=== PATIENT | female | born 1960 | race African-American/Black ===

== ENCOUNTER 2017-09-24 09:49 | Emergency (ER) | payer OTHER ==
[~2017-09-24] VITALS: Ht 162.6 cm; Wt 100.5 kg
[2017-09-24] MEDS ORDERED: DOCU-275 PO (09:55)
[2017-09-24] MEDS ORDERED: GABA-529 PO (09:55)
[2017-09-24] MEDS ORDERED: SOTA80 PO (09:55)
[2017-09-24] MEDS ORDERED: ASPI81 PO (09:55)
[2017-09-24] MEDS ORDERED: ENAL20 PO (09:55)
[2017-09-24] MEDS ORDERED: DIPH25 PO (09:55)
[2017-09-24] MEDS ORDERED: FURO20 PO (09:55)
[2017-09-24] MEDS ORDERED: DiphenhydrAMINE HCL 50 MG/ML VIAL IM ONE (11:30)
[2017-09-24] MEDS ORDERED: TRIAMCINOLONE ACETONIDE 40 MG/ML VIAL IM ONE (11:30)
[2017-09-24] MEDS ORDERED: GABA-531 PO (11:30)
[2017-09-24 12:26] VITALS: BP 118/91
== END 2017-09-24 12:29 | disposition home or self-care (01) ==
LOC: EMS 09:52
DX: L30.9 Dermatitis, unspecified (principal); I10 Essential (primary) hypertension; M19.90 Unspecified osteoarthritis, unspecified site; Z88.0 Allergy status to penicillin; Z88.2 Allergy status to sulfonamides; Z88.1 Allergy status to other antibiotic agents; Z91.040 Latex allergy status
CPT/HCPCS: 96372; 99284; J1200; J3301

== ENCOUNTER 2018-04-05 01:32 | Inpatient (IN) | payer OTHER ==
[~2018-04-05] VITALS: Ht 167.6 cm; Wt 103.5 kg
[~2018-04-05 01:32] MED LIST: ASPI81 PO; DIPH25 PO; DOCU-275 PO; ENAL20 PO; FURO20 PO; GABA-531 PO; SOTA80 PO
[2018-04-05] MEDS ORDERED: KETOROLAC TROMETHAMINE 30 MG/ML VIAL IVP ONE (02:15)
[2018-04-05] MEDS ORDERED: CYCLOBENZAPRINE HCL 10 MG TABLET PO ONE (02:15)
[2018-04-05 02:27] LABS: BASOPHILS % (AUTO) 0.6 % (0.0-2.0); HEMATOCRIT 36.2 % (36-46); HEMOGLOBIN 12.1 g/dL (12.0-16.0); LYMPHOCYTES # (AUTO) 1.6 K/uL (1.0-4.8); LYMPHOCYTES % (AUTO) 18.6 % (22.0-44.0); MEAN CORPUSCULAR HEMOGLOBIN 29.7 pg (26.0-34.0); MEAN CORPUSCULAR HGB CONC 33.3 G/dL (31.0-37.0); MEAN CORPUSCULAR VOLUME 89 fL (80-100); MONOCYTES # (AUTO) 1.1 K/uL (0.1-1.0); MONOCYTES % (AUTO) 12.3 % (2.0-9.0); NEUTROPHILS # (AUTO) 5.5 K/uL (1.8-7.7); NEUTROPHILS % (AUTO) 63.5 % (40.0-70.0); PLATELET COUNT (AUTO) 209 K/uL (150-450); RED BLOOD CELL COUNT(AUTO) 4.06 MIL/uL (4.00-5.20); RED CELL DISTRIBUTION WIDTH 14.7 % (11.5-14.5)
[2018-04-05 02:36] LABS: ANION GAP 6 mmol/L (8-16); CALCIUM, TOTAL 8.7 mg/dL (8.8-10.5); CARBON DIOXIDE 29 mmol/L (22-29); CHLORIDE 107 mmol/L (98-107); CREATININE 0.83 mg/dL (0.60-1.30); GLOMERULAR FILTR. RATE CALC > 60 mL/min (>60); GLUCOSE,RANDOM 101 mg/dL (70-110); POTASSIUM 3.3 mmol/L (3.5-5.1); SODIUM SERUM 142 mmol/L (136-145); UREA NITROGEN, BLOOD 10 mg/dL (7-18)
[2018-04-05 02:38] LABS: PROTHROMBIN TIME 10.6 SEC (9.4-11.6)
[2018-04-05 02:47] LABS: B-TYPE NATRIURETIC PEPTIDE 17 pg/mL (0-100)
[2018-04-05] MEDS ORDERED: CefTRIAXone SODIUM 1 GM in DEXTROSE 5%-WATER 10 ML IV ONE (03:00)
[2018-04-05] MEDS ORDERED: AZITHROMYCIN 500 MG/NS 250 ML IV ONE (03:00)
[2018-04-05 03:09] LABS: ALANINE AMINOTRANSFERASE 29 U/L (12-78); ALBUMIN 3.3 g/dL (3.4-5.0); ALKALINE PHOSPHATASE 66 U/L (46-116); ASPARTATE AMINOTRANSFERASE 24 U/L (15-37); BILIRUBIN,TOTAL 0.6 mg/dL (0.1-1.0); CREATINE KINASE MB 0.6 ng/mL (0-5); CREATINE KINASE, TOTAL 191 U/L (26-192); TOTAL PROTEIN, SERUM 7.2 g/dL (6.4-8.2)
[2018-04-05] MEDS ORDERED: ACETAMINOPHEN 325 MG TABLET PO PRN ×2 (03:15→07:30)
[2018-04-05] MEDS ORDERED: 0.9% SODIUM CHLORIDE 10 ML SYRINGE IVP PRN ×2 (03:15→07:30)
[2018-04-05] MEDS ORDERED: POTASSIUM CHLORIDE 20 MEQ ER TABLET PO ONE (04:15)
[2018-04-05 04:56] VITALS: BP 95/58
[2018-04-05 05:15] VITALS: BP 98/54
[2018-04-05] MEDS ORDERED: PNEUMOCOCCAL VACCINE POLYVALENT 0.5 ML VIAL [PPSV23] IM ONE (06:30)
[2018-04-05] MEDS ORDERED: DOCUSATE SODIUM 100 MG CAPSULE PO PRN (07:30)
[2018-04-05] MEDS ORDERED: ALBUTEROL SULFATE 2.5 MG/0.5 ML NEB SOLUTION NEB SCH (07:30)
[2018-04-05] MEDS ORDERED: ZOLPIDEM TARTRATE 5 MG TABLET PO PRN (07:30)
[2018-04-05] MEDS ORDERED: IPRATROPIUM BROMIDE 0.5 MG/2.5 ML NEB SOLUTION NEB PRN (07:30)
[2018-04-05] MEDS ORDERED: ONDANSETRON HCL 4 MG/2 ML VIAL IVP PRN (07:30)
[2018-04-05] MEDS ORDERED: ALBUTEROL SULFATE 2.5 MG/0.5 ML NEB SOLUTION NEB PRN (07:30)
[2018-04-05] MEDS ORDERED: IPRATROPIUM BROMIDE 0.5 MG/2.5 ML NEB SOLUTION NEB SCH (07:30)
[2018-04-05 07:43] VITALS: BP 102/62
[2018-04-05] MEDS ORDERED: HEPARIN SODIUM,PORCINE 5,000 UNITS/ML VIAL SQ SCH (08:00)
[2018-04-05] MEDS: ALBUTEROL SULFATE 2.5 MG/0.5 ML NEB SOLUTION NEB SCH ×3 (08:00→21:23)
[2018-04-05] MEDS: IPRATROPIUM BROMIDE 0.5 MG/2.5 ML NEB SOLUTION NEB SCH ×3 (08:00→21:23)
[2018-04-05] MEDS ORDERED: IOVERSOL 320 MG/ML 100 ML VIAL ONE (08:00)
[2018-04-05] MEDS: ENALAPRIL MALEATE 20 MG TABLET PO SCH (09:00)
[2018-04-05] MEDS: DiphenhydrAMINE HCL 25 MG CAPSULE PO PRN ×2 (09:10→19:47)
[2018-04-05] MEDS: GABAPENTIN 300 MG CAPSULE PO SCH ×3 (09:10→19:47)
[2018-04-05] MEDS: ASPIRIN 81 MG CHEWABLE TABLET PO SCH (09:10)
[2018-04-05] MEDS: PANTOPRAZOLE SODIUM 40 MG/VIAL IVP SCH (09:10)
[2018-04-05] MEDS ORDERED: HEPARIN SODIUM,PORCINE 5,000 UNITS/ML VIAL IVP PRN ×2 (10:45)
[2018-04-05] MEDS ORDERED: HEPARIN SODIUM,PORCINE 5,000 UNITS/ML VIAL IVP ONE (11:00)
[2018-04-05 11:22] LABS: BASOPHILS % (AUTO) 0.6 % (0.0-2.0); EOSINOPHILS % (AUTO) 4.7 % (1.0-6.0); HEMATOCRIT 33.7 % (36-46); LYMPHOCYTES # (AUTO) 1.8 K/uL (1.0-4.8); LYMPHOCYTES % (AUTO) 23.4 % (22.0-44.0); MEAN CORPUSCULAR HEMOGLOBIN 29.6 pg (26.0-34.0); MEAN CORPUSCULAR HGB CONC 32.8 G/dL (31.0-37.0); MEAN CORPUSCULAR VOLUME 90 fL (80-100); MONOCYTES # (AUTO) 0.7 K/uL (0.1-1.0); MONOCYTES % (AUTO) 9.8 % (2.0-9.0); NEUTROPHILS # (AUTO) 4.6 K/uL (1.8-7.7); NEUTROPHILS % (AUTO) 61.5 % (40.0-70.0); PLATELET COUNT (AUTO) 107 K/uL (150-450); RED BLOOD CELL COUNT(AUTO) 3.73 MIL/uL (4.00-5.20); RED CELL DISTRIBUTION WIDTH 14.9 % (11.5-14.5)
[2018-04-05 11:36] VITALS: BP 100/64
[2018-04-05 11:36] LABS: PROTHROMBIN TIME 10.8 SEC (9.4-11.6)
[2018-04-05] MEDS: OxyCODONE HCL/ACETAMINOPHEN 5-325 MG TABLET PO PRN ×2 (11:57→19:47)
[2018-04-05] MEDS: HEPARIN SODIUM 25000 UNITS/D5W 250 ML IV PRN (12:00)
[2018-04-05 15:08] LABS: APPEARANCE,URINE CLEAR (CLEAR); BILIRUBIN,URINE NEGATIVE (NEGATIVE); GLUCOSE, URINE (UA) NEGATIVE (NEGATIVE); KETONES,URINE NEGATIVE (NEGATIVE); LEUKOCYTE ESTERASE ,URINE NEGATIVE (NEGATIVE); NITRATE,URINE NEGATIVE (NEGATIVE); OCCULT BLOOD,URINE NEGATIVE (NEGATIVE); PROTEIN,URINE NEGATIVE (NEGATIVE)
[2018-04-05 15:45] VITALS: BP 99/72
[2018-04-05 19:40] VITALS: BP 101/64
[2018-04-06] VITALS (7 sets, daily range): BP systolic 98–111; BP diastolic 66–78
[2018-04-06] MEDS: OxyCODONE HCL/ACETAMINOPHEN 5-325 MG TABLET PO PRN ×2 (01:26→20:24)
[2018-04-06] MEDS: ALBUTEROL SULFATE 2.5 MG/0.5 ML NEB SOLUTION NEB SCH ×4 (02:13→19:57)
[2018-04-06] MEDS: IPRATROPIUM BROMIDE 0.5 MG/2.5 ML NEB SOLUTION NEB SCH ×4 (02:13→19:57)
[2018-04-06] MEDS: CefTRIAXone SODIUM 1 GM in DEXTROSE 5%-WATER 10 ML IV SCH (02:40)
[2018-04-06] MEDS: AZITHROMYCIN 500 MG/NS 250 ML IV SCH (02:40)
[2018-04-06] MEDS: DiphenhydrAMINE HCL 25 MG CAPSULE PO PRN ×3 (02:40→16:26)
[2018-04-06] MEDS: HEPARIN SODIUM 25000 UNITS/D5W 250 ML IV PRN (04:08)
[2018-04-06 06:05] LABS: BASOPHILS % (AUTO) 0.3 % (0.0-2.0); EOSINOPHILS % (AUTO) 6.1 % (1.0-6.0); HEMATOCRIT 32.3 % (36-46); LYMPHOCYTES % (AUTO) 27.2 % (22.0-44.0); MEAN CORPUSCULAR HEMOGLOBIN 30.3 pg (26.0-34.0); MEAN CORPUSCULAR HGB CONC 34.1 G/dL (31.0-37.0); MEAN CORPUSCULAR VOLUME 89 fL (80-100); MONOCYTES # (AUTO) 0.9 K/uL (0.1-1.0); MONOCYTES % (AUTO) 11.7 % (2.0-9.0); NEUTROPHILS # (AUTO) 4.1 K/uL (1.8-7.7); NEUTROPHILS % (AUTO) 54.7 % (40.0-70.0); PLATELET COUNT (AUTO) 203 K/uL (150-450); RED BLOOD CELL COUNT(AUTO) 3.62 MIL/uL (4.00-5.20); RED CELL DISTRIBUTION WIDTH 14.7 % (11.5-14.5)
[2018-04-06 06:11] LABS: ANION GAP 6 mmol/L (8-16); CALCIUM, TOTAL 7.6 mg/dL (8.8-10.5); CARBON DIOXIDE 28 mmol/L (22-29); CHLORIDE 105 mmol/L (98-107); CREATININE 0.75 mg/dL (0.60-1.30); GLOMERULAR FILTR. RATE CALC > 60 mL/min (>60); GLUCOSE,RANDOM 95 mg/dL (70-110); POTASSIUM 3.5 mmol/L (3.5-5.1); SODIUM SERUM 139 mmol/L (136-145); UREA NITROGEN, BLOOD 10 mg/dL (7-18)
[2018-04-06] MEDS: GABAPENTIN 300 MG CAPSULE PO SCH ×3 (08:41→20:23)
[2018-04-06] MEDS: PANTOPRAZOLE SODIUM 40 MG/VIAL IVP SCH (08:41)
[2018-04-06] MEDS: ASPIRIN 81 MG CHEWABLE TABLET PO SCH (08:41)
[2018-04-06] MEDS: ENALAPRIL MALEATE 20 MG TABLET PO SCH (08:42)
[2018-04-06] MEDS: DOCUSATE SODIUM 100 MG CAPSULE PO PRN (17:37)
[2018-04-07] MEDS: DiphenhydrAMINE HCL 25 MG CAPSULE PO PRN ×3 (00:53→20:13)
[2018-04-07] MEDS: ALBUTEROL SULFATE 2.5 MG/0.5 ML NEB SOLUTION NEB SCH ×4 (02:51→19:43)
[2018-04-07] MEDS: IPRATROPIUM BROMIDE 0.5 MG/2.5 ML NEB SOLUTION NEB SCH ×4 (02:51→19:43)
[2018-04-07] MEDS: AZITHROMYCIN 500 MG/NS 250 ML IV SCH (03:24)
[2018-04-07] MEDS: CefTRIAXone SODIUM 1 GM in DEXTROSE 5%-WATER 10 ML IV SCH (03:24)
[2018-04-07] MEDS: HEPARIN SODIUM 25000 UNITS/D5W 250 ML IV PRN ×2 (03:25→23:52)
[2018-04-07] MEDS ORDERED: SODIUM CHLORIDE 0.9% 250 ML IV ONE (03:29)
[2018-04-07] MEDS: OxyCODONE HCL/ACETAMINOPHEN 5-325 MG TABLET PO PRN ×3 (03:30→20:13)
[2018-04-07 04:15] VITALS: BP 114/75
[2018-04-07 07:40] VITALS: BP 101/75
[2018-04-07] MEDS: PANTOPRAZOLE SODIUM 40 MG/VIAL IVP SCH (08:06)
[2018-04-07] MEDS: DOCUSATE SODIUM 100 MG CAPSULE PO PRN (08:06)
[2018-04-07] MEDS: ASPIRIN 81 MG CHEWABLE TABLET PO SCH (08:06)
[2018-04-07] MEDS: GABAPENTIN 300 MG CAPSULE PO SCH ×3 (08:06→20:13)
[2018-04-07] MEDS: ENALAPRIL MALEATE 20 MG TABLET PO SCH (08:08)
[2018-04-07 11:21] VITALS: BP 121/90
[2018-04-07] MEDS ORDERED: *CLINICAL-WARFARIN SODIUM DOSING CLINICAL ONE (14:45)
[2018-04-07] MEDS ORDERED: MAGNESIUM HYDROXIDE SUSPENSION 30 ML UDCUP PO PRN (15:00)
[2018-04-07 15:55] VITALS: BP 101/70
[2018-04-07] MEDS ORDERED: WARFARIN SODIUM 5 MG TABLET PO ONE (17:00)
[2018-04-07] MEDS: RIVAROXABAN 15 MG TABLET PO SCH (18:00)
[2018-04-07] MEDS ORDERED: RIVAROXABAN 15 MG TABLET PO SCH (18:30)
[2018-04-07 20:19] VITALS: BP 102/64
[2018-04-08 00:06] VITALS: BP 117/83
[2018-04-08] MEDS: IPRATROPIUM BROMIDE 0.5 MG/2.5 ML NEB SOLUTION NEB SCH ×3 (02:29→13:23)
[2018-04-08] MEDS: ALBUTEROL SULFATE 2.5 MG/0.5 ML NEB SOLUTION NEB SCH ×3 (02:29→13:23)
[2018-04-08 04:05] VITALS: BP 113/75
[2018-04-08 06:48] LABS: PROTHROMBIN TIME 10.8 SEC (9.4-11.6)
[2018-04-08 07:28] VITALS: BP 98/68
[2018-04-08] MEDS: RIVAROXABAN 15 MG TABLET PO SCH (07:55)
[2018-04-08] MEDS: ENALAPRIL MALEATE 20 MG TABLET PO SCH ×2 (07:55→09:00)
[2018-04-08] MEDS: GABAPENTIN 300 MG CAPSULE PO SCH ×2 (07:55→16:05)
[2018-04-08] MEDS: ASPIRIN 81 MG CHEWABLE TABLET PO SCH (07:56)
[2018-04-08] MEDS: PANTOPRAZOLE SODIUM 40 MG/VIAL IVP SCH (07:56)
[2018-04-08] MEDS: DOCUSATE SODIUM 100 MG CAPSULE PO PRN (07:56)
[2018-04-08] MEDS ORDERED: *CLINICAL-RX DOSING [ENTER DRUG IN COMMENTS] CLINICAL ONE (09:00)
[2018-04-08] MEDS: DiphenhydrAMINE HCL 25 MG CAPSULE PO PRN (09:11)
[2018-04-08 11:57] VITALS: BP 104/67
[2018-04-08] MEDS ORDERED: RIVA1TAB PO ×2 (13:42→13:52)
[2018-04-08] MEDS ORDERED: RIVA20TA PO (13:53)
[2018-04-08] MEDS ORDERED: ALBU0.212 IH (13:58)
== END 2018-04-08 17:41 | disposition home or self-care (01) | DRG 134 ==
LOC: EMS 01:33 → 5S 03:00
PROVIDERS: ADMIT Internal Medicine; ATTEND Internal Medicine
PROC: 3E0234Z Introduction of Serum, Toxoid and Vaccine into Muscle, Percutaneous Approach (ICD-10-PCS; principal; 2018-04-05)
DX: I26.99 Other pulmonary embolism without acute cor pulmonale (principal); J18.9 Pneumonia, unspecified organism; J44.0 Chronic obstructive pulmonary disease with (acute) lower respiratory infection; I47.1 Supraventricular tachycardia; M19.90 Unspecified osteoarthritis, unspecified site; E87.6 Hypokalemia; I10 Essential (primary) hypertension; E66.9 Obesity, unspecified; M48.00 Spinal stenosis, site unspecified; F17.200 Nicotine dependence, unspecified, uncomplicated; K59.00 Constipation, unspecified; Z79.82 Long term (current) use of aspirin; Z79.899 Other long term (current) drug therapy; Z88.1 Allergy status to other antibiotic agents; Z88.2 Allergy status to sulfonamides; Z88.5 Allergy status to narcotic agent; Z88.0 Allergy status to penicillin; Z91.040 Latex allergy status; Z82.49 Family history of ischemic heart disease and other diseases of the circulatory system; Z68.36 Body mass index [BMI] 36.0-36.9, adult; Z23 Encounter for immunization
CPT/HCPCS: 71260; 82271; 83605; 83735; 87040; 87081; 90471; 93005; 93306; 93970; 94640; 96365; 96366; 96368; 96375; 99285; C9113; J0456; J0696; J1644; J1885; J7050; J7060

== ENCOUNTER 2024-09-13 14:59 | Emergency (ER) | payer OTHER ==
[~2024-09-13] VITALS: Ht 167.6 cm; Wt 108.4 kg
[~2024-09-13 14:59] MED LIST changes: +ALBU0.212 IH; +ASPI-1450 PO; -ASPI81 PO; +DIPH-1243 PO; -DIPH25 PO; -DOCU-275 PO; +DOCU-385 PO; -FURO20 PO; +FURO20TA5 PO; +GABA-1181 PO; -GABA-531 PO; +RIVA1TAB PO; +RIVA20TA PO; -SOTA80 PO
[2024-09-13 15:13] VITALS: TEMP 97.7
[2024-09-13] MEDS ORDERED: CLIN300C58 PO (18:53)
[2024-09-13 19:00] VITALS: BP 100/69; PULSE 93; RESP 16; O2SAT 96
== END 2024-09-13 19:10 | disposition home or self-care (01) ==
LOC: EMS 14:59
DX: S61.232A Puncture wound without foreign body of right middle finger without damage to nail, initial encounter (principal); I10 Essential (primary) hypertension; Z88.0 Allergy status to penicillin; Z88.1 Allergy status to other antibiotic agents; Z88.2 Allergy status to sulfonamides; Z88.5 Allergy status to narcotic agent; Z79.01 Long term (current) use of anticoagulants; Z79.82 Long term (current) use of aspirin; Z79.899 Other long term (current) drug therapy; X58.XXXA Exposure to other specified factors, initial encounter; Y93.89 Activity, other specified; Y92.89 Other specified places as the place of occurrence of the external cause; Y99.8 Other external cause status
CPT/HCPCS: 99283